=== PATIENT | male | born 1970 | race Caucasian/White ===

== ENCOUNTER 2017-02-28 06:01 | Emergency (ER) | END 2017-02-28 08:50 | disposition home or self-care (01) ==

== ENCOUNTER 2017-03-20 17:55 | Emergency (ER) | END 2017-03-20 19:12 | disposition left against medical advice (07) ==

== ENCOUNTER 2017-03-22 18:20 | Emergency (ER) | END 2017-03-22 19:46 | disposition left against medical advice (07) ==